=== PATIENT | female | born 1990 | race Caucasian/White ===

== ENCOUNTER 2017-05-02 06:56 | Emergency (ER) | payer MEDICAID ==
--- NOTE | 2017-05-02 07:41 | EDPHY ---
HPI/HX/ROS/PE/MDM Narrative: CHIEF COMPLAINT: Headache HPI: This patient is a 26 y/o female complaining of severe headache onset this morning around 2:00am. She has history of intracranial hemorrhage secondary to a horseback riding accident four years ago. Over the last four months, she has had increasingly frequent painful headaches, 1-3 times per day over the last week. She has visited her primary care provider and received a referral to neurology. She is scheduled for CT and MRI May 29. This morning, she developed a pounding frontal headache around 2:00am. She has had migraines in the past, but the pain is different from these. She feels she is unable to see straight and has associated nausea. No relief with 1000mg acetaminophen. No fever, recent trauma, vomiting, shortness of breath, or other associated symptoms. REVIEW OF SYSTEMS: Aside from elements discussed in the HPI, a comprehensive 10-point review of systems was reviewed and is negative. PMH: Endometriosis, PCOS (surgery 02/2017). SOCIAL HISTORY: Lives in [place], . Works at [employer]. PHYSICAL EXAM: General:Patient is alert, in no acute distress. ENT:Eyes are normal to inspection. ENT inspection normal. Neck: Normal inspection. Full range of motion. Respiratory:No respiratory distress. Breath sounds normal bilaterally. Cardiovascular: Regular rate and rhythm. Strong peripheral pulses. Normal cap refill. Abdomen:The abdomen is nontender to palpation. There are no peritoneal signs. There are normal bowel sounds. Back: Normal to inspection. No tenderness to palpation. Skin: Normal color. No rash. Warm and dry. Extremities: Normal appearance. Full range of motion. Neuro: Oriented x3. Normal motor function. Normal sensory function. No pronator drift. ED Course: 26 y/o female presents with frequent headaches, most recently onset around 2: 00am this morning. She is neurologically intact on exam. Plan for CT head. Plan to administer 10mg IV Reglan, 25mg IV Benadryl, 50mcg IV Fentanyl for pain relief. 09:[address] Echavarria, radiologist. CT head negative for acute processes. 09:10 Reassessed patient. Discussed imaging results. She is feeling better. Plan to discharge home in good condition. She will follow up with her neurologist, Dr. Lam, in [place]. Follow up and return precautions discussed. She is comfortable with this plan. - Data Points Imaging Results: Imaging Impressions Head CT 05/02/17 07:40 Impression: 1. No significant intracranial abnormality seen. 2. Nonspecific left maxillary and sphenoid sinus disease. If symptoms worsen, additional imaging may be necessary. Findings discussed with Bo Mims MD at 9:04 hour, 05/02/2017. Imaging: Discussed imaging studies w/ call center operations manager Radiologist Medications Given: Discontinued Medications Diphenhydramine HCl (Benadryl Injection) 25 mg IVP EDNOW ONE Stop: 05/02/17 07:47 Last Admin: 05/02/17 08:10 Dose: 25 mg Fentanyl (Sublimaze) 50 mcg IVP EDNOW ONE Stop: 05/02/17 07:47 Last Admin: 05/02/17 08:10 Dose: 50 mcg Sodium Chloride (Ns) 1,000 mls @ 0 mls/hr IV ONCE ONE; Wide Open PRN Reason: Protocol Stop: 05/02/17 07:47 Last Admin: 05/02/17 08:13 Dose: 1,000 mls Metoclopramide HCl (Reglan Injection) 10 mg IVP EDNOW ONE Stop: 05/02/17 07:47 Last Admin: 05/02/17 08:10 Dose: 10 mg General Time Seen by Provider: 05/02/17 07:34 Initial Vital Signs: Initial Vital Signs Temperature (C) 37.1 C 05/02/17 06:59 Heart Rate 97 05/02/17 06:59 Respiratory Rate 20 05/02/17 06:59 Blood Pressure 136/81 H 05/02/17 06:59 O2 Sat (%) 98 05/02/17 06:59 Allergies/Adverse Reactions: hydrocodone Allergy (Verified 05/02/17 06:58) hydromorphone [From Dilaudid] Allergy (Verified 05/02/17 06:58) ketorolac [From Toradol] Allergy (Verified 05/02/17 06:58) Home Medications: Medication Instructions Recorded Metformin HCl 05/02/17 Departure - Departure Disposition: Home, Routine, Self-Care Clinical Impression: Headache Qualifiers: Headache type: unspecified Headache chronicity pattern: acute headache Intractability: not intractable Qualified Code(s): R51 - Headache Condition: Good Instructions: Acute Headache (ED) Additional Instructions: 1. Follow-up with your neurologist for further evaluation. 2. Return to the emergency department immediately for recurrence of headache, nausea, vomiting, numbness, weakness, neck pain, fever or other concerns. 3. Use Tylenol and/or ibuprofen as directed below. Adult Pain & Fever Control: We recommend Acetaminophen (Tylenol) and Ibuprofen (Motrin,Advil) for pain and fever control. When fever is high or pain severe, both drugs can be used at the same time, but at different intervals. Please note the time differences. Your dose is: Acetaminophen 650mg every 4 to 6 hours Ibuprofen 600mg every 6-8 hours with food Note: do not take Acetaminophen with Hydrocodone (Vicodin, Lortab) or Oxycodone (Percocet). These medications also contain Acetaminophen. No more than 3000mg of Acetaminophen should be taken in 24 hours (for an adult). Referrals: [facility] [Other] - As per Instructions Rhett Hernandez DO [Doctor of Osteopathy] - As per Instructions Report Scribed for: Bo Mims Report Scribed by: Teresa Berger Date of Report: 05/02/17 Time of Report: 07:46 Physician Review and Approval Statement: Portions of this note were transcribed by an ED scribe. I personally performed the history, physical exam, and medical decision making; and confirm the accuracy of the information in the transcribed note.
[2017-05-02] MEDS ORDERED: fentaNYL 100 MCG/2 ML INJ IVP ONE (07:46)
[2017-05-02] MEDS ORDERED: NS 1,000 ML IV ONE (07:46)
[2017-05-02] MEDS ORDERED: METOCLOPRAMIDE 10 MG/2 ML VIAL IVP ONE (07:46)
[2017-05-02 09:33] VITALS: BP 123/57; PULSE 67; RESP 16; TEMP 98.1; O2SAT 96
== END 2017-05-02 09:31 | disposition home or self-care (01) ==
DX: R51 Headache (principal); E86.9 Volume depletion, unspecified
CPT/HCPCS: 96374; J1200; J2765; J3010